=== PATIENT | female | born 1950 | race Caucasian/White ===

== ENCOUNTER → 2020-08-28 | Outpatient (CLI) | payer MEDICARE, BC, OTHER ==
[~2020-08-28] MED LIST: AMLO-211 PO; ASCO-90 PO; ASPI-496 PO; CA C1TAB60 PO; CETI-158 PO; CHOL5000 PO; EMPA25TA PO; ESTR1TAB15 PO; FERR-46 PO; FLUT9.9S NS; FOLI0.8T5 PO; GABA100C PO; GABA300C10 PO; GARL10002 PO; LISI40TA9 PO; MELO15TA24 PO; MULT-658 PO; OMEG1CAP23 PO; POTA99TA2 PO; RANI150T4 PO; REGADENOSON 0.4 MG/5 ML SYRINGE ONE; ROSU20TA2 PO; UBID1CAP43 PO; VITA400C43 PO; ZINC50CA PO; areds PO; magnesium PO
== END | disposition home or self-care (01) ==
LOC: CFH 07:20
PROVIDERS: ATTEND Nurse Practitioner Family
DX: Z01.810 Encounter for preprocedural cardiovascular examination (principal); I10 Essential (primary) hypertension; I25.89 Other forms of chronic ischemic heart disease; I21.29 ST elevation (STEMI) myocardial infarction involving other sites; I21.19 ST elevation (STEMI) myocardial infarction involving other coronary artery of inferior wall
CPT/HCPCS: 78452; 93017; A9502; J2785